=== PATIENT | male | born 1970 | race Two or more races ===

== ENCOUNTER 2019-05-04 08:32 | Emergency (ER) | payer SELFPAY ==
[~2019-05-04] VITALS: Ht 172.7 cm; Wt 86.4 kg
[2019-05-04] MEDS ORDERED: PredniSONE 20 MG TABLET PO ONE (09:45)
[2019-05-04 10:05] VITALS: BP 124/91
== END 2019-05-04 10:27 | disposition home or self-care (01) ==
LOC: EMS 08:33
DX: L30.9 Dermatitis, unspecified (principal)
CPT/HCPCS: 99283; J7512